=== PATIENT | female | born 1955 | race Caucasian/White ===

== ENCOUNTER 2018-02-06 17:05 | Inpatient (IN) | payer MEDICARE, MEDICAID ==
[~2018-02-06] VITALS: Ht 170.2 cm; Wt 118.8 kg
[~2018-02-06 17:05] MED LIST: ACCUNEB SO1.25 MG/1 INH; ALBUTEROL2.5 MG/0.5 INH; CHANTIX1 MG PO; DUONEB 2.5-0.5 M3 ML INH; IBUPROFEN 400400 M2; IPRATROPIU0.2 MG/1 M IH; LEVOTHYROXIN0.175 MG PO; LEVOTHYROXINE 0.15MG PO; METFORMIN HCL500 MG PO; MUCINEX TA600 MG/TA2 PO; NORCO 5-325 TA1 EACH PO; ONDANSETRON HCL4 M2 PO; PREDNISONE 10 M10 MG PO; PROTONIX40 M1 PO; PULMICORT0.5 MG/22 INH; SINGULAIR 10 MG10 M1 PO; SPIRIVA INH; SYMBICORT160 MCG/4. INH; WELLBUTRIN SR150 MG PO; XOPENEX HF1 UDINHALE; XOPENEX HFA15 GM INH
[2018-02-06 17:09] VITALS: BP 126/79
[2018-02-06 17:57] LABS: HEMATOCRIT 41.9 % (37.0-47.0); HEMOGLOBIN 14.1 gm/dL (12.0-15.0); MCH 29.9 pg (26.0-34.0); MCHC 33.6 g/dL (28.0-37.0); MPV 7.9 fl. (7.2-11.1); NUCLEATED RBCS 0 /100WBC; PLATELET COUNT* 174 thou/uL (150-400); RBC 4.71 mil/uL (4.20-5.00); RDW-CV 14.2 % (10.5-14.5); WBC 5.4 thou/uL (4.0-11.0)
[2018-02-06 18:06] LABS: CALCIUM 8.6 mg/dL (8.5-10.1); CREATININE 0.7 mg/dL (0.6-1.3); POTASSIUM 3.9 mmol/L (3.5-5.1)
[2018-02-06 18:17] LABS: ALBUMIN 3.9 g/dL (3.4-5.0); TOTAL BILIRUBIN 0.4 mg/dL (<0.1-1.0); TOTAL PROTEIN 7.4 g/dL (6.4-8.2)
[2018-02-06 18:25] LABS: INFLUENZA A ANTIGEN None Detected (None Detect); INFLUENZA B ANTIGEN None Detected (None Detect)
[2018-02-06 18:33] LABS: ABSOLUTE BASOPHILS 0.1 thou/uL (0.0-0.2); ABSOLUTE EOSINOPHILS 0.1 thou/uL (0.0-0.7); ABSOLUTE LYMPHOCYTES 0.5 thou/uL (0.8-5.3); ABSOLUTE MONOCYTES 0.3 thou/uL (0.0-1.2); ABSOLUTE NEUTROPHILS 4.4 thou/uL (1.6-8.1); PLATELET ESTIMATE ADEQUATE
[2018-02-06 19:28] LABS: TROPONIN-I LEVEL <0.06 ng/mL (<0.06)
--- NOTE | 2018-02-06 20:26 | NUR ---
REPORT CALLED TO [facility]. PT IS NOW GOING TO ROOM 305.
[2018-02-06 20:57] VITALS: BP 145/87
[2018-02-06 21:00] VITALS: BP 129/51
--- NOTE | 2018-02-07 05:47 | NUR ---
PATIENT ARRIVED ON FLOOR FROM ER ABOUT 2100. PATIENT ADMISSION HISTORY AND ASSESSMENT WAS COMPLETED CHARTED. PATIENT STATES SHE HAS BEEN FEELING BAD SINCE TUESDAY WAS PRESCRIBED A ZPACK TOOK LAST DOSE 02/06. STARTED RUNNING A FEVER YESTERDAY. WENT TO DR. CRUZ OFFICE YESTERDAY AND HE SENT HER TO THE ER. PATIENT IS ON OXYGEN AT 2L PER NASAL CANNULA AND IS WHAT SHE WEARS AT HOME. LUNGS ARE DIMINISHED AND WHEEZY. IV IS SALINE LOCKED. PATIENT WAS GIVEN TYLENOL ONCE FOR GENARALIZED ACHES ALL OVER. WILL CONTINUE TO MONITOR.
[2018-02-07 07:30] VITALS: BP 147/66
--- NOTE | 2018-02-07 14:42 | EKG ---
[place] [address] ELECTROCARDIOGRAM REPORT Name: CAROLYNN SELLERS I Room: [address] ADM IN M.R.#: [id number] Admission: 02/06/18 Attend Phys: Niki Fuller Discharge: Date of : 51 Report #: [id number] THIS REPORT FOR: //name// [facility] ED Test Date: 2018-02-06 Test Time: 17:40:31 Pat Name: CAROLYNN SELLERS Department: Room: [facility] Gender: F Motor Route Carrier: Anurag HERNANDEZ : 1955 Requested By: Jalen Green Order Number: [id number] MD: Jesus Manuel Godfrey Measurements Intervals [place] Rate: 106 P: 60 MT: 175 QRS: 50 QRSD: 96 T: 55 QT: 345 QTc: 459 Interpretive Statements Sinus tachycardia Compared to ECG 10/27/2014 02:11:26 Myocardial infarct finding no longer present Electronically Signed On 02-07-2018 14:42:14 CDT by Jesus Manuel Godfrey [email or web address] <ELECTRONICALLY SIGNED> By: Jesus Manuel Godfrey MD, [facility] 02/07/18 1442 [id number] [id number] Jesus Manuel Godfrey MD, [facility] /EPI
[2018-02-07 16:24] VITALS: BP 155/57
--- NOTE | 2018-02-07 16:54 | NUR ---
CM SPOKE TO THE PATIENT TO DISCUSS HOME SITUATION, DISCHARGE PLANNING, AND TO INFORM OF THE ROLE OF CM. PATIENT ALERT, ORIENTED, AND INDPENDENT WITH ADL'S. PATIENT RESIDES AT HOME ALONE IN THE [facility]ICAL [facility] APARTMENTS. 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 PATIENT USES HOME 02 AND CPAP. PATIENT HAS NO HX OF HH OR SNF, AND PLANS TO RETURN HOME AT D/C. CM WILL REMAIN AVIALABLE TO ASSIST AND FOLLOW NEEDED.
--- NOTE | 2018-02-07 19:06 | NUR ---
PATIENT A&OX4, 2L O2, IV RIGHT AC SALINE LOCK. UP AD MIREYA, STEADY GAIT. C/O GENERALIZED PAIN, RELIEF WITH MEDICATION. AFEBRILE TODAY, STARTED SOLUMEDROL, BS RISING. NO OTHER CONCERNS AT THIS TIME. APPROPRAITE AND COOPORATIVE WITH CARE.
[2018-02-07 22:22] VITALS: BP 137/81
--- NOTE | 2018-02-08 05:58 | NUR ---
PATIENT SLEPT PART OF THE NIGHT. IV REMAINS SALINE LOCKED. PATIENT WAS GIVEN TYLENOL ONCE FOR PAIN. OXYGEN REMAINS AT 2 LITERS PER NASAL CANNULA. WILL CONTINUE TO MONITOR.
[2018-02-08 08:05] VITALS: BP 149/66
[2018-02-08 16:50] VITALS: BP 111/53
--- NOTE | 2018-02-09 05:34 | NUR ---
PATIENT SLEPT MOST OF THE NIGHT. PATIENT HAD NO COMPLAINTS OF PAIN. OXYGEN REMAINS AT 2L SATTING 97%. PATIENT IS POSSIBLY GOING HOME TODAY. WILL CONTINUE TO MONITOR.
[2018-02-09 08:25] VITALS: BP 118/36
[2018-02-09 11:16] VITALS: BP 118/36
[2018-02-09] MEDS ORDERED: LEVAQUIN 750 M750 MG PO (11:23)
[2018-02-09] MEDS ORDERED: TAMIFLU75 MG PO (11:23)
[2018-02-09] MEDS ORDERED: TESSALON PERLE100 MG PO (11:34)
--- NOTE | 2018-02-09 12:06 | NUR ---
PT DISCHARGED HOME WITH ALL BELONGINGS. PRESCRIPTIONS CALLED TO [facility] IN [place]. PT ACKNOWLEDGED DISCHARGE INSTRUCTIONS AND MEDICATIONS.
[2018-02-09 23:12] LABS: ADENOVIRUS Negative (Negative); INFLUENZA A Negative (Negative); INFLUENZA B Negative (Negative); METAPNEUMOVIRUS Negative (Negative); PARAINFLUENZA 1 Negative (Negative); PARAINFLUENZA 2 Negative (Negative); PARAINFLUENZA 3 Negative (Negative); RHINOVIRUS Negative (Negative); RSV A Negative (Negative); RSV B Negative (Negative)
== END 2018-02-09 12:06 | disposition home or self-care (01) | DRG 865 ==
LOC: M.ERS 17:05 → M.3W 19:27 → M.TBA-ER 19:27 → M.3W 20:49
PROVIDERS: Internal Medicine; Nurse Practitioner Psychiatric/Mental Health; ADMIT Internal Medicine
DX: B34.9 Viral infection, unspecified (principal); J96.01 Acute respiratory failure with hypoxia; J44.1 Chronic obstructive pulmonary disease with (acute) exacerbation; R65.10 Systemic inflammatory response syndrome (SIRS) of non-infectious origin without acute organ dysfunction; E11.9 Type 2 diabetes mellitus without complications; F32.9 Major depressive disorder, single episode, unspecified; E89.0 Postprocedural hypothyroidism; E05.00 Thyrotoxicosis with diffuse goiter without thyrotoxic crisis or storm; Z87.891 Personal history of nicotine dependence; Z79.899 Other long term (current) drug therapy

== ENCOUNTER 2020-07-30 17:06 | Emergency (ER) | payer MEDICARE, MEDICAID ==
[~2020-07-30] VITALS: Ht 170.2 cm; Wt 113.4 kg
[~2020-07-30 17:06] MED LIST changes: +LEVAQUIN 750 M750 MG PO; +TAMIFLU75 MG PO; +TESSALON PERLE100 MG PO
[2020-07-30] MEDS ORDERED: SYMBICORT160 MCG/4. INH (17:24)
[2020-07-30 18:16] LABS: HEMATOCRIT 42.4 % (37.0-47.0); HEMOGLOBIN 14.4 gm/dL (12.0-15.0); MCH 30.2 pg (26.0-34.0); MCV 88.9 fL (80.0-100.0); NUCLEATED RBCS 0 /100WBC; PLATELET COUNT* 264 thou/uL (150-400); RBC 4.77 mil/uL (4.20-5.00); RDW-CV 13.7 % (10.5-14.5); WBC 23.5 thou/uL (4.0-11.0)
[2020-07-30 18:27] LABS: CALCIUM 9.2 mg/dL (8.5-10.1); CREATININE 0.9 mg/dL (0.6-1.3); POTASSIUM 4.1 mmol/L (3.5-5.1)
[2020-07-30 18:31] LABS: TOTAL BILIRUBIN 0.8 mg/dL (<0.1-1.0); TOTAL PROTEIN 8.2 g/dL (6.4-8.2)
[2020-07-30 18:51] LABS: ABSOLUTE LYMPHOCYTES 0.2 thou/uL (0.8-5.3); ABSOLUTE MONOCYTES 0.9 thou/uL (0.0-1.2); ABSOLUTE NEUTROPHILS 22.3 thou/uL (1.6-8.1); PLATELET ESTIMATE ADEQUATE
[2020-07-30 21:32] LABS: BE -6.3 mmol/L (-2 to +3); PO2 96.5 mmHg (75.0-100.0)
[2020-07-30 21:33] LABS: PCO2 61.4 mmHg (35.0-45.0); pH 7.188 (7.340-7.450)
[2020-07-30 22:53] LABS: BE -6.9 mmol/L (-2 to +3)
[2020-07-30 22:56] LABS: PCO2 60.9 mmHg (35.0-45.0); PO2 43.1 mmHg (75.0-100.0); pH 7.177 (7.340-7.450)
[2020-07-30 23:13] LABS: BE -4.6 mmol/L (-2 to +3)
[2020-07-30 23:15] LABS: PCO2 54.6 mmHg (35.0-45.0); PO2 170.5 mmHg (75.0-100.0); pH 7.247 (7.340-7.450)
[2020-07-30 23:30] VITALS: BP 132/78
== END 2020-07-30 23:30 | disposition short-term general hospital (02) ==
LOC: M.ERS 17:06
PROVIDERS: Emergency Medicine; Nurse Practitioner Family
DX: J05.10 Acute epiglottitis without obstruction (principal); Z20.828 Contact with and (suspected) exposure to other viral communicable diseases; J44.9 Chronic obstructive pulmonary disease, unspecified; E11.9 Type 2 diabetes mellitus without complications; Z79.899 Other long term (current) drug therapy; Z79.2 Long term (current) use of antibiotics

== ENCOUNTER → 2020-10-07 | Outpatient (CLI) | payer MEDICARE, MEDICAID | LOC: M.RAD 13:15 | PROVIDERS: ATTEND Internal Medicine | DX: M85.88 Other specified disorders of bone density and structure, other site (principal); Z78.0 Asymptomatic menopausal state ==

== ENCOUNTER → 2020-12-09 | Outpatient (CLI) | payer MEDICARE, MEDICAID | LOC: M.RAD 10:18 | PROVIDERS: ATTEND Internal Medicine | DX: Z12.31 Encounter for screening mammogram for malignant neoplasm of breast (principal) ==